=== PATIENT | male | born 1945 | race Caucasian/White ===

== ENCOUNTER 2023-06-14 10:13 | Inpatient (IN) | payer OTHER ==
[~2023-06-14] VITALS: Ht 175.3 cm; Wt 112.8 kg
[2023-06-14 10:29] LABS: Basophils # (auto) 0.1 10 ^3/uL (0-0.2); Basophils % (auto) 1.1 % (0.0-2.0); Eosinophils # (auto) 0.7 10 ^3/uL (0-0.8); Eosinophils % (auto) 6.7 % (0.0-7.0); Hematocrit 42.7 % (41.0-53.0); Hemoglobin 14.5 g/dL (13.5-17.5); Lymphocytes # (auto) 2.8 10 ^3/uL (0.4-5.4); Lymphocytes % (auto) 27.3 % (10.0-50.0); Mean Corpuscular Hemoglobin 33.8 pg (28.0-32.0); Mean Corpuscular Hgb Conc. 34.1 g/dL (32.0-36.0); Mean Corpuscular Volume 99.1 fL (80.0-100.0); Monocytes # (auto) 0.9 10 ^3/uL (0-1.3); Monocytes % (auto) 8.9 % (0.0-12.0); Neutrophils # (auto) 5.8 10 ^3/uL (1.6-8.6); Nucleated Red Blood Cells % 0.1 %; Red Cell Distribution Width 13.5 % (11.8-14.3); White Blood Cell 10.4 10^3/uL (4.4-10.8)
[2023-06-14 11:09] LABS: Alanine Aminotransferase 23 U/L (7-40); Albumin 4.2 g/dL (3.2-4.8); Alkaline Phosphatase 87 U/L (46-116); Anion Gap 8.9 (5-15); Aspartate Aminotransferase 20 U/L (13-40); BUN/Creatinine Ratio 12.5 (10.0-20.0); Blood Urea Nitrogen 19 mg/dL (9-23); Calcium 9.5 mg/dL (8.5-10.1); Carbon Dioxide 21.1 mmol/L (20-30); Chloride 102 mmol/L (98-107); Glucose 100 mg/dL (74-106); Potassium 4.2 mmol/L (3.5-5.1); Sodium 132 mmol/L (136-145)
[2023-06-14 11:10] LABS: Bilirubin, Total 0.5 mg/dL (0.2-1.0); Total Protein 7.1 g/dL (5.7-8.2)
[2023-06-14] MEDS ORDERED: NITROGLYCERIN 2% OINT 1GM PKG TD STA (11:53)
[2023-06-14] MEDS ORDERED: ONDANSETRON HCL 4 MG/2 ML VIAL IV ONE (12:00)
[2023-06-14] MEDS ORDERED: LORazepam 2MG/ML-1ML VIAL IV ONE (12:00)
[2023-06-14] MEDS ORDERED: PANTOPRAZOLE 40 MG/10 ML VIAL INJ IV ONE (12:00)
[2023-06-14] MEDS ORDERED: ACETAMINOPHEN 325 MG TAB PO ONE (12:00)
[2023-06-14] MEDS ORDERED: SODIUM CHLORIDE 0.9% 1,000 ML IV ONE (12:00)
[2023-06-14] MEDS ORDERED: ASPirin 81 mg TAB PO ONE (12:00)
[2023-06-14 12:56] LABS: INR 1.01 (0.9-1.15); Prothrombin Time 10.6 sec (9.3-11.8)
[2023-06-14 18:14] LABS: Urine Bacteria NONE SEEN /hpf (None Seen); Urine Blood Negative /uL (Negative); Urine Clarity Clear (Clear); Urine Color Yellow (Yellow); Urine Hyaline Cast FEW /lpf (0 - 2); Urine Mucus FEW (None Seen); Urine Protein, UAD TRACE (Negative); Urine Specific Gravity 1.022 (1.001-1.035); Urine WBC 1 /hpf (0 - 3); Urine pH 5.5 (5.0-8.0)
[2023-06-14] MEDS ORDERED: hydrALAZINE HCL 10 MG TAB PO PRN (21:00)
[2023-06-14] MEDS ORDERED: NITROGLYCERIN 0.4 MG SL TAB SL PRN (21:00)
[2023-06-14] MEDS ORDERED: MORPHINE SULFATE INJ 2 MG/ml SYRG IV PRN (21:00)
[2023-06-14] MEDS ORDERED: ONDANSETRON HCL 4 MG/2 ML VIAL IV PRN (21:00)
[2023-06-14] MEDS ORDERED: HYDROcodone-ACET 5/325MG TAB PO PRN (21:00)
[2023-06-14] MEDS ORDERED: ATORVASTATIN 20 MG TAB PO SCH (22:00)
[2023-06-15] VITALS (9 sets, daily range): BP systolic 126–140; BP diastolic 61–76; PULSE 63–81; RESP 16–20; TEMP 97.3–98.6; O2SAT 94–97
[2023-06-15 08:18] LABS: Anion Gap 8.1 (5-15); Carbon Dioxide 21.9 mmol/L (20-30); Chloride 102 mmol/L (98-107); Potassium 3.8 mmol/L (3.5-5.1); Sodium 132 mmol/L (136-145)
[2023-06-15 08:19] LABS: Calcium 9.1 mg/dL (8.5-10.1)
[2023-06-15 08:24] LABS: BUN/Creatinine Ratio 11.8 (10.0-20.0); Blood Urea Nitrogen 18 mg/dL (9-23); Glucose 95 mg/dL (74-106); Triglycerides 99 mg/dL (< 150)
[2023-06-15 08:25] LABS: LDL Cholesterol 106 mg/dL (< 100)
[2023-06-15 08:26] LABS: Cholesterol 150 mg/dL (< 200); HDL Cholesterol 29 mg/dL (40-59)
[2023-06-15] MEDS: ASPirin 81 mg TAB PO SCH (10:01)
[2023-06-15] MEDS: PANTOPRAZOLE 40 MG/10 ML VIAL INJ IV SCH (10:01)
[2023-06-15] MEDS: ATORVASTATIN 20 MG TAB PO SCH (21:11)
[2023-06-15] MEDS: SODIUM CHLORIDE 0.9% 1,000 ML IV SCH (22:00)
[2023-06-16] VITALS (7 sets, daily range): BP systolic 119–134; BP diastolic 63–79; PULSE 58–79; RESP 18–20; TEMP 97.7–98.1; O2SAT 94–98
[2023-06-16 05:52] LABS: Anion Gap 6.5 (5-15); Calcium 9.5 mg/dL (8.7-10.4); Carbon Dioxide 24.5 mmol/L (20-30); Chloride 98 mmol/L (98-107); Potassium 3.8 mmol/L (3.5-5.1); Sodium 129 mmol/L (136-145)
[2023-06-16 05:57] LABS: Glucose 94 mg/dL (74-106)
[2023-06-16 05:58] LABS: BUN/Creatinine Ratio 10.9 (10.0-20.0); Blood Urea Nitrogen 17 mg/dL (9-23)
[2023-06-16] MEDS: SODIUM CHLORIDE 0.9% 1,000 ML IV SCH ×3 (08:00→20:05)
[2023-06-16] MEDS ORDERED: IOHEXOL 350 MG/ML 100ML IJ ONE (08:03)
[2023-06-16] MEDS: ENOXAPARIN SOD 40 MG/0.4 ML SYRINGE SC SCH (09:12)
[2023-06-16] MEDS: ASPirin 81 mg TAB PO SCH (09:12)
[2023-06-16] MEDS: PANTOPRAZOLE 40 MG/10 ML VIAL INJ IV SCH (09:13)
[2023-06-16] MEDS: ATORVASTATIN 20 MG TAB PO SCH (21:09)
[2023-06-16] MEDS ORDERED: ALPRAZolam 0.5 MG TAB PO PRN ×2 (21:30)
[2023-06-16] MEDS: ACETYLCYSTEINE ORAL for CIN 20%(200MG/ML) 4ML PO SCH (22:00)
[2023-06-17] VITALS (7 sets, daily range): BP systolic 125–159; BP diastolic 64–86; PULSE 58–80; RESP 16–22; TEMP 97.6–98.5; O2SAT 94–96
[2023-06-17] MEDS: SODIUM CHLORIDE 0.9% 1,000 ML IV SCH ×3 (04:25→20:47)
[2023-06-17 06:37] LABS: Calcium 9.3 mg/dL (8.7-10.4); Chloride 97 mmol/L (98-107); Potassium 3.8 mmol/L (3.5-5.1); Sodium 127 mmol/L (136-145)
[2023-06-17 06:38] LABS: Anion Gap 6.8 (5-15); Carbon Dioxide 23.2 mmol/L (20-30)
[2023-06-17 06:43] LABS: BUN/Creatinine Ratio 10.4 (10.0-20.0); Blood Urea Nitrogen 18 mg/dL (9-23); Glucose 101 mg/dL (74-106)
[2023-06-17] MEDS: ADENOSINE 97 MG in GIVE UN-DILUTED 0 ML IV STA ×2 (07:45→09:45)
[2023-06-17] MEDS: ENOXAPARIN SOD 40 MG/0.4 ML SYRINGE SC SCH (10:15)
[2023-06-17] MEDS: PANTOPRAZOLE 40 MG/10 ML VIAL INJ IV SCH (10:15)
[2023-06-17] MEDS: ASPirin 81 mg TAB PO SCH (10:15)
[2023-06-17] MEDS: ACETYLCYSTEINE ORAL for CIN 20%(200MG/ML) 4ML PO SCH ×2 (10:20→22:31)
[2023-06-17] MEDS ORDERED: ALPR1TAB2 PO (12:48)
[2023-06-17] MEDS ORDERED: ESOM40GR PO (12:48)
[2023-06-17] MEDS ORDERED: HYDR25TA4 PO (12:48)
[2023-06-17] MEDS ORDERED: LOSA100T58 PO (12:48)
[2023-06-17] MEDS ORDERED: CITA-73 PO (12:48)
[2023-06-17] MEDS ORDERED: AMLO1TAB23 PO (15:40)
[2023-06-17] MEDS ORDERED: amLODIPine BESYLATE 5 MG TAB PO ONE (15:45)
[2023-06-17 16:56] LABS: Chloride 96 mmol/L (98-107); Sodium 126 mmol/L (136-145)
[2023-06-17 16:57] LABS: Anion Gap 6.1 (5-15); Calcium 9.6 mg/dL (8.5-10.1); Carbon Dioxide 23.9 mmol/L (20-30)
[2023-06-17 17:02] LABS: BUN/Creatinine Ratio 12.3 (10.0-20.0); Blood Urea Nitrogen 20 mg/dL (9-23); Glucose 99 mg/dL (74-106)
[2023-06-17] MEDS: ATORVASTATIN 20 MG TAB PO SCH (22:31)
[2023-06-18] MEDS: SODIUM CHLORIDE 0.9% 1,000 ML IV SCH (04:42)
[2023-06-18 05:00] VITALS: BP 136/71; PULSE 66; RESP 18; TEMP 97.8; O2SAT 96
[2023-06-18 08:00] VITALS: BP 144/67; PULSE 63; PULSE 76; RESP 20; TEMP 97.6; O2SAT 98
[2023-06-18 09:00] VITALS: BP 144/67; PULSE 76; RESP 20; TEMP 97.6; O2SAT 98
[2023-06-18] MEDS ORDERED: HCTZ 25 MG TAB PO SCH (10:00)
[2023-06-18] MEDS ORDERED: LOSARTAN POTASSIUM 50 MG TAB PO SCH (10:00)
[2023-06-18] MEDS ORDERED: ALPRAZOLAM 1 MG PO PRN (10:00)
[2023-06-18] MEDS: ASPirin 81 mg TAB PO SCH (10:30)
[2023-06-18] MEDS: CITALOPRAM HYDROBR 20 MG TAB PO SCH (10:30)
[2023-06-18] MEDS: PANTOPRAZOLE 40 MG TAB PO SCH (10:31)
[2023-06-18] MEDS: ENOXAPARIN SOD 40 MG/0.4 ML SYRINGE SC SCH (10:32)
[2023-06-18] MEDS: ACETYLCYSTEINE ORAL for CIN 20%(200MG/ML) 4ML PO SCH (10:32)
[2023-06-18] MEDS: amLODIPine BESYLATE 5 MG TAB PO SCH (10:36)
[2023-06-18] MEDS ORDERED: ISOSORBIDE MONONITRATE ER 60 MG TAB PO ONE (12:00)
[2023-06-18] MEDS ORDERED: SOD CHL 0.45% 1,000 ML IV SCH (14:00)
[2023-06-18] MEDS: ACETAMINOPHEN 325 MG TAB PO PRN ×2 (14:59→22:27)
[2023-06-18] MEDS ORDERED: SODIUM CHLORIDE 0.9% 1,000 ML IV SCH (18:00)
[2023-06-18 20:00] VITALS: PULSE 84; RESP 17
[2023-06-18] MEDS: ATORVASTATIN 20 MG TAB PO SCH (21:06)
[2023-06-18] MEDS: FEXOFENADINE HCL 60 MG TAB PO SCH (21:06)
[2023-06-18] MEDS: FLUTICASONE PROP NASAL SPR 0.05 % (50MCG) 16GM EACHNOSTRI SCH (21:06)
[2023-06-18 22:00] VITALS: BP 94/50; PULSE 77; RESP 16; TEMP 98.2; O2SAT 96
[2023-06-19] VITALS (11 sets, daily range): BP systolic 99–123; BP diastolic 38–60; PULSE 60–85; RESP 14–20; TEMP 97.6–99; O2SAT 93–95
[2023-06-19 02:22] LABS: Anion Gap 7.8 (5-15); Carbon Dioxide 21.2 mmol/L (20-30); Chloride 95 mmol/L (98-107); Potassium 3.8 mmol/L (3.5-5.1); Sodium 124 mmol/L (136-145)
[2023-06-19 02:23] LABS: Calcium 9.1 mg/dL (8.5-10.1)
[2023-06-19 02:28] LABS: BUN/Creatinine Ratio 10.3 (10.0-20.0); Blood Urea Nitrogen 18 mg/dL (9-23); Glucose 94 mg/dL (74-106)
[2023-06-19 02:35] LABS: Eosinophils # (auto) 0.3 10 ^3/uL (0-0.8)
[2023-06-19 02:37] LABS: Basophils # (auto) 0 10 ^3/uL (0-0.2); Basophils % (auto) 0.3 % (0.0-2.0); Eosinophils % (auto) 2.2 % (0.0-7.0); Hematocrit 33.8 % (41.0-53.0); Lymphocytes # (auto) 3.6 10 ^3/uL (0.4-5.4); Lymphocytes % (auto) 24.3 % (10.0-50.0); Mean Corpuscular Hemoglobin 34.5 pg (28.0-32.0); Mean Corpuscular Hgb Conc. 35.4 g/dL (32.0-36.0); Mean Corpuscular Volume 97.4 fL (80.0-100.0); Monocytes # (auto) 1.4 10 ^3/uL (0-1.3); Monocytes % (auto) 9.4 % (0.0-12.0); Neutrophils # (auto) 9.6 10 ^3/uL (1.6-8.6); Neutrophils % (auto) 63.8 % (37.0-80.0); Nucleated Red Blood Cells % 0.1 %; Red Blood Cells 3.48 10^6/uL (4.5-5.90); Red Cell Distribution Width 13.1 % (11.8-14.3)
[2023-06-19 02:55] LABS: INR 1.08 (0.9-1.15); Partial Thromboplastin Time 27.6 SEC (24.5-34.5); Prothrombin Time 11.3 sec (9.3-11.8)
[2023-06-19] MEDS: FLUTICASONE PROP NASAL SPR 0.05 % (50MCG) 16GM EACHNOSTRI SCH ×2 (09:09→22:10)
[2023-06-19] MEDS: ASPirin 81 mg TAB PO SCH (09:10)
[2023-06-19] MEDS: ENOXAPARIN SOD 40 MG/0.4 ML SYRINGE SC SCH (09:14)
[2023-06-19] MEDS: CITALOPRAM HYDROBR 20 MG TAB PO SCH (09:14)
[2023-06-19] MEDS: PANTOPRAZOLE 40 MG TAB PO SCH (09:14)
[2023-06-19] MEDS: ISOSORBIDE MONONITRATE ER 60 MG TAB PO SCH (09:16)
[2023-06-19] MEDS: FEXOFENADINE HCL 60 MG TAB PO SCH ×2 (10:09→22:10)
[2023-06-19] MEDS: amLODIPine BESYLATE 5 MG TAB PO SCH (12:30)
[2023-06-19] MEDS ORDERED: ANGIOMAX 250 MG VIAL IV ONE (15:43)
[2023-06-19] MEDS ORDERED: VERAPAMIL 2.5MG/ML INJ 2ML VIAL IV ONE (15:44)
[2023-06-19] MEDS ORDERED: fentaNYL CITRATE 100 MCG/2 ML VL ONE (15:44)
[2023-06-19] MEDS ORDERED: LIDOCAINE 2%HCL (LOCAL ANESTH.) INJ 20ML MDV ONE (15:45)
[2023-06-19] MEDS ORDERED: MIDAZOLAM HCL 2MG/2ML 2ml VIAL (1mg/ml) ONE (15:45)
[2023-06-19] MEDS ORDERED: SODIUM CHL 0.9% 0 ML ONE (15:45)
[2023-06-19] MEDS ORDERED: IOHEXOL 350 MG/ML 100ML IJ ONE ×2 (16:09→16:34)
[2023-06-19] MEDS ORDERED: FUROSEMIDE 40 MG/4 ML VIAL IV ONE (16:15)
[2023-06-19] MEDS ORDERED: SODIUM CHLORIDE 0.9% 1,000 ML IV SCH (19:00)
[2023-06-19] MEDS: ATORVASTATIN 20 MG TAB PO SCH (22:10)
[2023-06-20 05:00] VITALS: BP 101/68; PULSE 68; RESP 19; TEMP 97.9; O2SAT 96
[2023-06-20 06:25] LABS: Chloride 97 mmol/L (98-107); Potassium 3.8 mmol/L (3.5-5.1); Sodium 126 mmol/L (136-145)
[2023-06-20 06:26] LABS: Anion Gap 7 (5-15); Calcium 9.3 mg/dL (8.7-10.4); Carbon Dioxide 22 mmol/L (20-30)
[2023-06-20 06:31] LABS: BUN/Creatinine Ratio 11.8 (10.0-20.0); Blood Urea Nitrogen 18 mg/dL (9-23); Glucose 85 mg/dL (74-106)
[2023-06-20 07:30] VITALS: PULSE 68
[2023-06-20 08:00] VITALS: RESP 18; O2SAT 96
[2023-06-20 09:00] VITALS: BP 132/73; PULSE 72; RESP 20; TEMP 97.8; O2SAT 95
[2023-06-20] MEDS: FLUTICASONE PROP NASAL SPR 0.05 % (50MCG) 16GM EACHNOSTRI SCH (10:00)
[2023-06-20] MEDS: ENOXAPARIN SOD 40 MG/0.4 ML SYRINGE SC SCH (10:00)
[2023-06-20] MEDS: FEXOFENADINE HCL 60 MG TAB PO SCH (10:15)
[2023-06-20] MEDS: ISOSORBIDE MONONITRATE ER 60 MG TAB PO SCH (10:16)
[2023-06-20] MEDS: ASPirin 81 mg TAB PO SCH (10:17)
[2023-06-20] MEDS: amLODIPine BESYLATE 5 MG TAB PO SCH (10:17)
[2023-06-20] MEDS: CITALOPRAM HYDROBR 20 MG TAB PO SCH (10:18)
[2023-06-20] MEDS ORDERED: ASPI81TA28 PO (10:18)
[2023-06-20] MEDS: PANTOPRAZOLE 40 MG TAB PO SCH (10:18)
[2023-06-20] MEDS ORDERED: ATOR20TA50 PO (10:18)
[2023-06-20 13:00] VITALS: BP 111/55; PULSE 68; RESP 18; TEMP 98; O2SAT 95
[2023-06-20 13:12] VITALS: BP 101/68; TEMP 36.6
== END 2023-06-20 13:45 | disposition home or self-care (01) | DRG 287 ==
LOC: ER 10:13 → TELE 20:56 → TELE-CENTR 22:56 → TELE 06-15 00:09 → TELE-CENTR 06-15 01:16 → OBSVTOIN 06-16 11:44
PROVIDERS: ADMIT Hospitalist; ATTEND Hospitalist
PROC: 4A023N7 Measurement of Cardiac Sampling and Pressure, Left Heart, Percutaneous Approach (ICD-10-PCS; principal; 2023-06-19)
PROC: B2111ZZ Fluoroscopy of Multiple Coronary Arteries using Low Osmolar Contrast (ICD-10-PCS; 2023-06-19)
PROC: B2151ZZ Fluoroscopy of Left Heart using Low Osmolar Contrast (ICD-10-PCS; 2023-06-19)
DX: I25.10 Atherosclerotic heart disease of native coronary artery without angina pectoris (principal); N17.9 Acute kidney failure, unspecified; E87.1 Hypo-osmolality and hyponatremia; I13.10 Hypertensive heart and chronic kidney disease without heart failure, with stage 1 through stage 4 chronic kidney disease, or unspecified chronic kidney disease; Z53.20 Procedure and treatment not carried out because of patient's decision for unspecified reasons; I45.10 Unspecified right bundle-branch block; E66.9 Obesity, unspecified; E03.8 Other specified hypothyroidism; N18.31 Chronic kidney disease, stage 3a; Z68.36 Body mass index [BMI] 36.0-36.9, adult; I25.2 Old myocardial infarction; Z79.82 Long term (current) use of aspirin; Z79.899 Other long term (current) drug therapy; Z82.49 Family history of ischemic heart disease and other diseases of the circulatory system
CPT/HCPCS: 36415; 71045; 71275; 78452; 80048; 80053; 80061; 81001; 83735; 83880; 83930; 84439; 84443; 84484; 84550; 85025; 85379; 85610; 85730; 93005; 93017; 93306; 93458; 96361; 96374; 96375; 99152; 99153; C9113; G0378; J0153; J2250; J2405

== ENCOUNTER 2024-09-01 02:43 | Emergency (ER) | payer OTHER ==
[~2024-09-01] VITALS: Ht 175.3 cm; Wt 100.0 kg
[~2024-09-01 02:43] MED LIST: ALPR1TAB2 PO; AMLO1TAB23 PO; ASPI81TA28 PO; ATOR20TA50 PO; CITA-73 PO; ESOM40GR PO
[2024-09-01 03:15] VITALS: TEMP 98.8
[2024-09-01 03:44] VITALS: PULSE 84; RESP 16; O2SAT 95
--- NOTE | 2024-09-01 04:11 | ED.PDOC ---
History of Present Illness HPI Comments 79 y/o M, Hx of ORALIA, CKF, HTN, ND, and obesity, is BIBA for c/o generalized weakness s/p mechanical fall, today. Patient endorses on having a mechanical fall, this morning, after losing his balance and falling backwards and landing onto his back on concrete brittanie, without head injury or lost of consciousn ess, and being unable to assist himself back up onto his feet then, this morning. Patient refutes any recent prior injuries and ailments, with exception of a productive cough with white phlegm production that he has been having for the past 3x days that he still endorses on having. Patient denies having any vision or speech changes, numbness, tingling, additional injuries, or other associated symptoms or modifiers at this time. Chief Complaint: Dizziness Time Seen by MD: 03:50 Reviewed Notes: Nurses Notes, Telephone Switchboard Operator Notes, Medications, Allergies Allergies: Coded Allergies: No Known Drug Allergy (Verified Allergy, Unknown, 06/14/23) Home Meds Active Scripts Aspirin (Aspirin Ec) 81 Mg Tab, 81 MG PO DAILY, #30 TAB Prov:KARLI ANTHONY MD 06/20/23 Atorvastatin Calcium (ATORVASTATIN CALCIUM) 20 Mg Tab, 1 TAB PO DAILY, #90 TAB 1 Refill Prov:KARLI ANTHONY MD 06/20/23 Amlodipine Besylate (Amlodipine Besylate) 10 Mg Tab, 1 TAB PO DAILY, #90 TAB 1 Refill Prov:KARLI ANTHONY MD 06/17/23 Reported Medications Esomeprazole Magnesium (Esomeprazole Magnesium) 40 Mg Gra, 40 MG PO DAILY, GM 06/17/23 Alprazolam (Xanax) 1 Mg Tab, 1 TAB PO DAILY, #60 TAB 06/17/23 Citalopram Hydrobromide (Citalopram Hydrobromide) 40 Mg Tab, 1 TAB PO DAILY, #90 TAB 1 Refill 06/17/23 Information Source: Patient, Emergency Med Personnel Mode of Arrival: EMS Past Medical History PAST MEDICAL HISTORY: Anxiety, CKF, HTN, ND Past Medical History (Other): ORALIA, obesity Surgical History (Other): left-knee Sx Family History Family History: Unknown Social History Smoker: Non-Smoker Alcohol: Denies ETOH Use Drugs: Denies Drug Use Lives In: Home All Other Systems: Reviewed and Negative (see HPI) Physical Exam General Appearance: No Apparent Distress, Obese HEENT: Normal ENT Inspection, Pharynx Normal, TMs Normal Neck: Full Range of Motion, Non-Tender, Normal, Normal Inspection Respiratory: Chest Non-Tender, Lungs Clear, No Accessory Muscle Use, No Respiratory Distress, Normal Breath Sounds Cardiovascular: No Edema, No JVD, No Murmur, No Gallop, Normal Peripheral Pulses, Regular Rate/Rhythm Breast Exam: Deferred Gastrointestinal: No Organomegaly, Non Tender, No Pulsatile Mass, Normal Bowel Sounds, Soft Genitalia: Deferred Pelvic: Deferred Rectal: Deferred Extremities: No calf tenderness, Normal capillary refill, Normal inspection, Normal range of motion, Non-tender, No pedal edema Musculoskeletal : Apperance: Normal 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 Was a procedure done?: No EKG EKG : Pulse Rate (adult): 90 [place]: Normal Cardiac Rhythm: NSR Block: RBBB Hypertrophy: LVH ST: Normal Comments left anterior fascicular block Differential Dx Considerations may include: viral syndrome, UTI, URI, Covid19, electrolyte imbalance, fracture, dislocation, sprain, musculoskeletal pain X-Ray, Labs, Meds, VS Vital Signs Date Time Temp Pulse Resp B/P (MAP) Pulse Ox O2 Delivery O2 Flow Rate FiO2 09/01/24 05:00 129 18 124/77 (93) 96 09/01/24 04:34 20 95 Room Air* 0 21 09/01/24 04:11 90 09/01/24 03:44 84 16 95 Nasal Cannula* 4 36 09/01/24 03:15 98.8 92 11 138/76 (96) 95 98.8 09/01/24 02:55 90 09/01/24 02:52 97.8 89 16 147/116 (126) 97 Lab Test 09/01/24 04:50 09/01/24 04:39 Range/Units White Blood Count 11.8 H 4.4-10.8 10^3/uL Red Blood Count 4.34 L 4.5-5.90 10^6/uL Hemoglobin 15.3 13.5-17.5 g/dL Hematocrit 45.1 41.0-53.0 % Mean Corpuscular Volume 104.1 H 80.0-100.0 fL Mean Corpuscular Hemoglobin 35.3 H 28.0-32.0 pg Mean Corpuscular Hemoglobin Concent 33.9 32.0-36.0 g/dL Red Cell Distribution Width 13.2 11.8-14.3 % Platelet Count 186 140-450 10^3/uL Mean Platelet Volume 8.9 6.9-10.8 fL Neutrophils (%) (Auto) 73.7 37.0-80.0 % Lymphocytes (%) (Auto) 13.7 10.0-50.0 % Monocytes (%) (Auto) 12.1 H 0.0-12.0 % Eosinophils (%) (Auto) 0.1 0.0-7.0 % Basophils (%) (Auto) 0.4 0.0-2.0 % Neutrophils # (Auto) 8.7 H 1.6-8.6 10 ^3/uL Lymphocytes # (Auto) 1.6 0.4-5.4 10 ^3/uL Monocytes # (Auto) 1.4 H 0-1.3 10 ^3/uL Eosinophils # (Auto) 0 0-0.8 10 ^3/uL Basophils # (Auto) 0.1 0-0.2 10 ^3/uL Nucleated Red Blood Cells 0.3 % Prothrombin Time 11.5 9.3-11.8 sec Prothrombin Time INR 1.09 0.9-1.15 Activated Partial Thromboplast Time 31.0 24.5-34.5 SEC Sodium Level 139 136-145 mmol/L Potassium Level 4.1 3.5-5.1 mmol/L Chloride Level 105 98-107 mmol/L Carbon Dioxide Level 22 20-31 mmol/L Anion Gap 12 5-15 Blood Urea Nitrogen 18 9-23 mg/dL Creatinine 1.56 H 0.700-1.30 mg/dL Glomerular Filtration Rate Calc 45 >90 mL/min BUN/Creatinine Ratio 11.5 10.0-20.0 Serum Glucose 101 74-106 mg/dL Calcium Level 10.4 8.7-10.4 mg/dL Total Bilirubin 0.8 0.2-1.0 mg/dL Aspartate Amino Transferase (AST) 36 13-40 U/L Alanine Aminotransferase (ALT) 38 7-40 U/L Alkaline Phosphatase 111 46-116 U/L Troponin I High Sensitivity 47 </=54 ng/L B-Type Natriuretic Peptide 218.06 0-100 pg/mL Total Protein 7.4 5.7-8.2 g/dL Albumin 4.6 3.2-4.8 g/dL Influenza Type A Antigen Negative Negative Influenza Type B Antigen Negative Negative SARS-CoV-2 Antigen (Rapid) Negative NEGATIVE Current Medications Medications (Trade) Dose Ordered Sig/Kemal Route Start Time Stop Time Status Last Admin Albuterol (Ventolin Medneb) 5 mg ONCE ONCE NEB 09/01/24 04:15 09/01/24 04:16 DC 09/01/24 04:24 Levofloxacin/ Dextrose 100 ml @ 100 mls/hr ONCE ONCE IV 09/01/24 04:15 09/01/24 05:14 DC 09/01/24 04:40 Methylprednisolone Sodium Succinate (Solu Medrol) 125 mg ONCE ONCE IV 09/01/24 04:15 09/01/24 04:16 DC 09/01/24 04:40 [place] [id number] Ph: [phone] DIAGNOSTIC IMAGING Diagnostic Imaging Report : [id number] Signed PATIENT: MINDY HAWTHORNE ACCT: [id number] UNIT: [id number] : 1945 LOC: ER ROOM / BED: / AGE / SEX: 79 / M ADM STATUS: REG ER SERVICE [id number] ORDERING PHYSICIAN: FREDY MCKEON MD PROCEDURE(s): CXRP - CHEST PORTABLE REASON: cough ORDER NUMBER(s): [id number], ACCESSION NUMBER(s): [id number] CHEST RADIOGRAPH Indication: cough Technique: Single frontal view of the chest was obtained COMPARISON: XY CHEST PORTABLE on DOS: 06/14/23 FINDINGS: Lines and Tubes: None Lungs: Low lung volumes Pleura: No effusion. No pneumothorax. Cardiomediastinal contours: Cardiomegaly Bones: Unremarkable IMPRESSION: Low lung volumes and cardiomegaly. ATED BY: LEONID JONES MD DICTATED DATE/TIME: 09/01/24457 SIGNED BY: LEONID JONES MD SIGNED DATE/TIME: 09/01/24457 CC: WBC is 11.8. Troponin is 47. BNP is 219. EKG shows no significant changes. COVID and influenza a and B are negative. The patient will be discharged with a Z-Jerald. Time of 1ST Reevaluation: 04:20 Reevaluation 1ST: Unchanged Patient Education/Counseling: Diagnosis, Treatment Family Education/Counseling: No Family Present Departure 1 Departure Time of Disposition: 06:01 Impression: Primary Impression: Fall Qualified Codes: W19.XXXA - Unspecified fall, initial encounter Additional Impressions: Generalized weakness Upper respiratory infection Qualified Codes: J06.9 - Acute upper respiratory infection, unspecified Disposition: 01 HOME / SELF CARE / HOMELESS Condition: Stable Additional Instructions: Reassessed patient, vital signs stable. Denies any new symptoms. Patient is able to tolerate PO and ambulate/be mobile at their baseline without concern. Risks and benefits of all medications given or prescribed, if any, discussed. All lab work, imaging and diagnostic studies were reviewed by me. The patient was counseled extensively on my clinical impression, diagnosis, expected course of the disease, and plan, including their follow-up care. Will discharge patient. Patient instructed to follow up with Primary Care Physician within 24-48 hours. Strict return precautions given for further exacerbation of symptoms or for new symptoms. The patient was given the opportunity to ask questions and all questions were answered by myself and the nursing/tech staff. Patient is in agreement with the care plan. The patient verbally expressed understanding of the discharge instructions, including the reasons to return to the Emergency Department. e-Prescriptions Azithromycin (Zithromax Z-Jerald) 250 Mg Tab 250 MG PO DAILY, #5 TAB Prov: FREDY MCKEON MD 09/01/24 Discharged With: Self Critical Care Note Critical Care Time?: No Stability Stability form required: No Heart Score Heart Score: Heart Score Response (Comments) Value History N/A 0 EKG N/A 0 Age N/A 0 Risk Factors N/A 0 Troponin N/A 0 Total 0 I personally scribed for FREDY MCKEON MD ([email or web address]) on 09/01/24 at 04:11. Electronically submitted by Kiran Dugan ([email or web address]). I personally scribed for FREDY MCKEON MD ([email or web address]) on 09/01/24 at 05:21. Electronically submitted by Kiran Dugan ([email or web address]). FREDY MCKEON MD Sep 01, 2024 04:11
[2024-09-01] MEDS: ALBUTEROL SULF 2.5 MG/0.5ML(0.5%) NEB SOLN NEB ONE (04:24)
[2024-09-01] MEDS: methylPREDNISolone SOD SUCC 125 MG/2 ML VL IV ONE (04:40)
[2024-09-01] MEDS: levoFLOXacin 500MG 100 ML IV ONE (04:40)
[2024-09-01 05:00] VITALS: BP 124/77; PULSE 129; RESP 18; O2SAT 96
--- NOTE | 2024-09-01 05:02 | DVH ---
CHEST RADIOGRAPH Indication: cough Technique: Single frontal view of the chest was obtained COMPARISON: XY CHEST PORTABLE on DOS: 06/14/23 FINDINGS: Lines and Tubes: None Lungs: Low lung volumes Pleura: No effusion. No pneumothorax. Cardiomediastinal contours: Cardiomegaly Bones: Unremarkable IMPRESSION: Low lung volumes and cardiomegaly.
[2024-09-01 05:14] LABS: COVID19 ANTIGEN SOFIA FIA NEGATIVE (NEGATIVE)
[2024-09-01 05:21] LABS: Basophils # (auto) 0.1 10 ^3/uL (0-0.2); Basophils % (auto) 0.4 % (0.0-2.0); Eosinophils # (auto) 0 10 ^3/uL (0-0.8); Eosinophils % (auto) 0.1 % (0.0-7.0); Hematocrit 45.1 % (41.0-53.0); Hemoglobin 15.3 g/dL (13.5-17.5); Lymphocytes # (auto) 1.6 10 ^3/uL (0.4-5.4); Lymphocytes % (auto) 13.7 % (10.0-50.0); Mean Corpuscular Hemoglobin 35.3 pg (28.0-32.0); Mean Corpuscular Hgb Conc. 33.9 g/dL (32.0-36.0); Mean Corpuscular Volume 104.1 fL (80.0-100.0); Monocytes # (auto) 1.4 10 ^3/uL (0-1.3); Monocytes % (auto) 12.1 % (0.0-12.0); Neutrophils # (auto) 8.7 10 ^3/uL (1.6-8.6); Neutrophils % (auto) 73.7 % (37.0-80.0); Nucleated Red Blood Cells % 0.3 %; Platelet Count (auto) 186 10^3/uL (140-450); Red Blood Cells 4.34 10^6/uL (4.5-5.90); Red Cell Distribution Width 13.2 % (11.8-14.3); White Blood Cell 11.8 10^3/uL (4.4-10.8)
[2024-09-01 05:21] LABS: Rapid Influenza A Negative (Negative); Rapid Influenza B Negative (Negative)
[2024-09-01 05:25] LABS: Alanine Aminotransferase 38 U/L (7-40); Alkaline Phosphatase 111 U/L (46-116); Anion Gap 12 (5-15); Aspartate Aminotransferase 36 U/L (13-40); BUN/Creatinine Ratio 11.5 (10.0-20.0); Blood Urea Nitrogen 18 mg/dL (9-23); Calcium 10.4 mg/dL (8.7-10.4); Carbon Dioxide 22 mmol/L (20-31); Chloride 105 mmol/L (98-107); Glucose 101 mg/dL (74-106); Potassium 4.1 mmol/L (3.5-5.1); Sodium 139 mmol/L (136-145)
[2024-09-01 05:26] LABS: Albumin 4.6 g/dL (3.2-4.8); Bilirubin, Total 0.8 mg/dL (0.2-1.0); Total Protein 7.4 g/dL (5.7-8.2)
[2024-09-01 05:27] LABS: INR 1.09 (0.9-1.15); Prothrombin Time 11.5 sec (9.3-11.8)
[2024-09-01] MEDS ORDERED: AZITTAB PO (06:02)
--- NOTE | 2024-09-01 06:21 | ECG ---
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
== END 2024-09-01 07:30 | disposition home or self-care (01) ==
LOC: ER 02:43 → EDBD 02:43 → ER 07:30
DX: R53.1 Weakness (principal); J06.9 Acute upper respiratory infection, unspecified; I10 Essential (primary) hypertension; Z79.899 Other long term (current) drug therapy; Z79.84 Long term (current) use of oral hypoglycemic drugs; Z20.822 Contact with and (suspected) exposure to COVID-19; Z98.890 Other specified postprocedural states; W18.39XA Other fall on same level, initial encounter; Y93.89 Activity, other specified; Y92.89 Other specified places as the place of occurrence of the external cause; Y99.8 Other external cause status
CPT/HCPCS: 36415; 71045; 80053; 83880; 84484; 85025; 85610; 85730; 87426; 87804; 93005; 94640; 96365; 96375; 99285; J1956; J2919

== ENCOUNTER 2025-06-10 22:07 | Emergency (ER) | payer OTHER ==
[~2025-06-10] VITALS: Ht 175.3 cm; Wt 113.0 kg
[~2025-06-10 22:07] MED LIST changes: +AZITTAB PO
[2025-06-10 22:10] VITALS: PULSE 91; RESP 33; O2SAT 96
--- NOTE | 2025-06-10 22:34 | ED.PDOC ---
History of Present Illness HPI Comments 80-year-old male who came to ER via EMS for generalized weakness. Patient states he has been unwell for the past 2 days, has been feeling generally weak with shortness a breath, fever and chills. He fell off his bed today, landing badly in his left side, with notable bruising on his left flank. Denies any h ead trauma or loss of consciousness. Upon arrival patient has a temperature has a 102.9 F Chief Complaint: General Weakness Time Seen by MD: 22:33 Reviewed Notes: Nurses Notes Allergies: Coded Allergies: No Known Drug Allergy (Verified Allergy, Unknown, 06/14/23) Home Meds Active Scripts Azithromycin (Zithromax Z-Jerald) 250 Mg Tab, 250 MG PO DAILY, #5 TAB Prov:FREDY MCKEON MD 09/01/24 Aspirin (Aspirin Ec) 81 Mg Tab, 81 MG PO DAILY, #30 TAB Prov:KARLI ANTHONY MD 06/20/23 Atorvastatin Calcium (ATORVASTATIN CALCIUM) 20 Mg Tab, 1 TAB PO DAILY, #90 TAB 1 Refill Prov:KARLI ANTHONY MD 06/20/23 Amlodipine Besylate (Amlodipine Besylate) 10 Mg Tab, 1 TAB PO DAILY, #90 TAB 1 Refill Prov:KARLI ANTHONY MD 06/17/23 Reported Medications Esomeprazole Magnesium (Esomeprazole Magnesium) 40 Mg Gra, 40 MG PO DAILY, GM 06/17/23 Alprazolam (Xanax) 1 Mg Tab, 1 TAB PO DAILY, #60 TAB 06/17/23 Citalopram Hydrobromide (Citalopram Hydrobromide) 40 Mg Tab, 1 TAB PO DAILY, #90 TAB 1 Refill 06/17/23 Information Source: Patient Mode of Arrival: EMS Severity: Moderate Timing: Hours Duration: Since onset Past Medical History PAST MEDICAL HISTORY: Anxiety, CKF, HTN, HI Surgical History: Denies all surgeries Family History Family History: Reviewed,noncontributory to illness Social History Smoker: Non-Smoker Alcohol: Denies ETOH Use Drugs: Denies Drug Use Lives In: Home Constitutional: reports: fever, weakness; denies: chills, diaphoresis, fatigue, malaise, sweats, others EENTM: denies: blurred vision, double vision, ear bleeding, ear discharge, ear drainage, ear pain, ear ringing, eye pain, eye redness, hearing loss, mouth pain, mouth swelling, nasal discharge, nose bleeding, nose congestion, nose pain, photophobia, tearing, throat pain, throat swelling, voice changes, others Respiratory: denies: cough, hemoptysis, orthopnea, SOB at rest, shortness of breath, SOB with excertion, stridor, wheezing, others Cardiovascular: denies: chest pain, dizzy spells, diaphoresis, Dyspnea on exertion, edema, irregular heart beat, left arm pain, lightheadedness, palpitations, PND, syncope, others Gastrointestinal: denies: abdomen distended, abdominal pain, blood streaked bowels, constipated, diarrhea, dysphagia, difficulty swallowing, hematemesis, melena, nausea, poor appetite, poor fluid intake, rectal bleeding, rectal pain, vomiting, others Genitourinary: reports: flank pain (Left); denies: burning, dysuria, frequency, hematuria, incontinence, penile discharge, penile sore, pain, testicle pain, testicle swelling, urgency, others Neurological: denies: dizziness, fainting, headache, left sided numbness, left sided weakness, numbness, paresthesia, pre-existing deficit, right sided numbness, right sided weakness, seizure, speech problems, tingling, tremors, weakness, others Musculoskeletal: denies: back pain, gout, joint pain, joint swelling, muscle pain, muscle stiffness, neck pain, others Integumetry: denies: bruises, change in color, change in hair/nails, dryness, laceration, lesions, lumps, rash, wounds, others Allergic/Immunocompromised: denies: Difficulty Healing, Frequent Infections, Hives, Itching, others Hematologic/Lymphatic: denies: anemia, blood clots, easy bleeding, easy bruising, swollen glands, others Endocrine: denies: excessive hunger, excessive sweating, excessive thirst, excessive urination, flushing, intolerance to cold, intolerance to heat, unexplained weight gain, unexplained weight loss, others Psychiatric: denies: anxiety, bipolar disorder, depression, hopeless, panic disorder, schizophrenia, sleepless, suicidal, others Physical Exam General Appearance: No Apparent Distress, Normal HEENT: Normal ENT Inspection, Pharynx Normal, TMs Normal Neck: Full Range of Motion, Non-Tender, Normal, Normal Inspection Respiratory: Chest Non-Tender, Lungs Clear, No Accessory Muscle Use, No Respira tory Distress, Normal Breath Sounds Cardiovascular: No Edema, No JVD, No Murmur, No Gallop, Normal Peripheral Pulses, Regular Rate/Rhythm Breast Exam: Deferred Gastrointestinal: No Organomegaly, Non Tender, No Pulsatile Mass, Normal Bowel Sounds, Soft Genitalia: Deferred Pelvic: Deferred Rectal: Deferred Extremities: No calf tenderness, Normal capillary refill, Normal inspection, Normal range of motion, Non-tender, No pedal edema Musculoskeletal : Apperance: Normal 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 Was a procedure done?: No EKG EKG : Pulse Rate (adult): 107 Cardiac Rhythm: ST Differential Dx Considerations may include: Anemia, electrolyte imbalance, viral syndrome, COVID-19, weakness, fall injury X-Ray, Labs, Meds, VS Vital Signs Date Time Temp Pulse Resp B/P (MAP) Pulse Ox O2 Delivery O2 Flow Rate FiO2 06/10/25 23:43 100.7 06/10/25 22:34 107 06/10/25 22:13 107 06/10/25 22:07 102.9 112 23 131/67 95 102.9 Lab Test 06/11/25 00:37 06/10/25 23:35 06/10/25 22:40 Range/Units Lactic Acid Level Pending 3.0 *H 0.4-2.0 mmol/L Influenza Type A Antigen Negative Negative Influenza Type B Antigen Negative Negative SARS-CoV-2 Antigen (Rapid) Positive *A NEGATIVE White Blood Count 13.4 H 4.4-10.8 10^3/uL Red Blood Count 4.45 L 4.5-5.90 10^6/uL Hemoglobin 15.3 13.5-17.5 g/dL Hematocrit 44.6 41.0-53.0 % Mean Corpuscular Volume 100.1 H 80.0-100.0 fL Mean Corpuscular Hemoglobin 34.4 H 28.0-32.0 pg Mean Corpuscular Hemoglobin Concent 34.4 32.0-36.0 g/dL Red Cell Distribution Width 12.9 11.8-14.3 % Platelet Count 218 140-450 10^3/uL Mean Platelet Volume 8.9 6.9-10.8 fL Neutrophils (%) (Auto) 84.2 H 37.0-80.0 % Lymphocytes (%) (Auto) 6.9 L 10.0-50.0 % Monocytes (%) (Auto) 8.5 0.0-12.0 % Eosinophils (%) (Auto) 0.0 0.0-7.0 % Basophils (%) (Auto) 0.4 0.0-2.0 % Neutrophils # (Auto) 11.3 H 1.6-8.6 10 ^3/uL Lymphocytes # (Auto) 0.9 0.4-5.4 10 ^3/uL Monocytes # (Auto) 1.1 0-1.3 10 ^3/uL Eosinophils # (Auto) 0 0-0.8 10 ^3/uL Basophils # (Auto) 0 0-0.2 10 ^3/uL Nucleated Red Blood Cells 0.0 % Sodium Level 136 136-145 mmol/L Potassium Level 4.2 3.5-5.1 mmol/L Chloride Level 103 98-107 mmol/L Carbon Dioxide Level 20 20-31 mmol/L Anion Gap 13 5-15 Blood Urea Nitrogen 19 9-23 mg/dL Creatinine 1.78 H 0.700-1.30 mg/dL Glomerular Filtration Rate Calc 38 >90 mL/min BUN/Creatinine Ratio 10.7 10.0-20.0 Serum Glucose 115 H 74-106 mg/dL Calcium Level 10.1 8.7-10.4 mg/dL Total Bilirubin 0.6 0.2-1.0 mg/dL Aspartate Amino Transferase (AST) 45 H 13-40 U/L Alanine Aminotransferase (ALT) 31 7-40 U/L Alkaline Phosphatase 90 46-116 U/L Total Protein 8.2 5.7-8.2 g/dL Albumin 5.0 H 3.2-4.8 g/dL Current Medications Medications (Trade) Dose Ordered Sig/Kemal Route Start Time Stop Time Status Last Admin Sodium Chloride 1,000 ml @ 1,000 mls/hr Q1H ONCE IVB 06/10/25 22:30 06/10/25 23:29 DC 06/10/25 23:30 Acetaminophen (Tylenol Tablet) 1,000 mg ONCE ONCE PO 06/10/25 22:30 06/10/25 22:31 DC 06/10/25 23:43 Time of 1ST Reevaluation: 22:29 Reevaluation 1ST: Unchanged Patient Education/Counseling: Diagnosis, Treatment Family Education/Counseling: No Family Present SEPSIS Sepsis Screen Date sepsis recognized/suspect: Jun 10, 2025 Time Sepsis recognized/suspect: 2206 Recent Procedure: No On Antibiotic Therapy: No Respiratory Rate >20: No Heart Rate >90: No Temp<36 C (96.8 F) or >38.3 C: No SBP <90 or MAP <65 mmHG: No New Acute Mental Status Change: No Is the patient on CPAP, BIPAP,: No Physician Orders Electrocardigram (06/10/25 22:16) Urinalysis (06/10/25 22:26) Blood Culture (06/10/25 22:26) Chest Xray 1 View (06/10/25 22:26) Piperacillin-Tazob 3.375gm (Zosyn 3.375g (06/11/25 01:00) Vital Signs Date Time Temp Pulse Resp B/P (MAP) Pulse Ox O2 Delivery O2 Flow Rate FiO2 06/10/25 23:43 100.7 06/10/25 22:34 107 06/10/25 22:13 107 06/10/25 22:07 102.9 112 23 131/67 95 102.9 Laboratory Tests Test 06/10/25 22:40 06/11/25 00:37 Lactic Acid Level 3.0 mmol/L (0.4-2.0) *H Pending White Blood Count 13.4 10^3/uL (4.4-10.8) H Medications Medications Dose Ordered Sig/Kemal Route Start Time Stop Time Status Last Admin Dose Admin Acetaminophen 1,000 mg ONCE ONCE PO 06/10/25 22:30 06/10/25 22:31 DC 06/10/25 23:43 Sodium Chloride 1,000 ml @ 1,000 mls/hr Q1H ONCE IVB 06/10/25 22:30 06/10/25 23:29 DC 06/10/25 23:30 Departure 1 Departure Time of Disposition: 01:02 Impression: Primary Impression: ORALIA (acute kidney injury) Additional Impression: COVID-19 Disposition: 09 ADMITTED INPATIENT Admit to: Med Surg Condition: Guarded Comments 80-year-old male noted to have a fever and generalized weakness today. On his lab results he is positive for COVID. White blood cell count elevated at 13.4. Lactic acid is elevated 3.0. Acute renal injury with creatinine high at 1.78. Patient was given IV fluids and IV Zosyn antibiotics and Tylenol for fever. Patient will need to be admitted for COVID-19 and acute renal injury and possible sepsis Critical Care Note Critical Care Time?: Yes (35 min-critical care time only) Critical care comment: Total critical care time: Approximately 36 minutes Due to a high probability of clinically significant, life threatening deterioration, the patient required my highest level of preparedness to intervene emergently and I personally spent this critical care time directly and personally managing the patient. This critical care time included obtaining a history; examining the patient; pulse oximetry; ordering and review of studies; arranging urgent treatment with development of a management plan; evaluation of patient's response to treatment; frequent reassessment; and, discussions with other providers. This critical care time was performed to assess and manage the high probability of imminent, life-threatening deterioration that could result in multi-organ failure. It was exclusive of separately billable procedures and treating other patients. Stability Stability form required: No Heart Score Heart Score: Heart Score Response (Comments) Value History N/A 0 EKG N/A 0 Age N/A 0 Risk Factors N/A 0 Troponin N/A 0 Total 0 I personally scribed for SHARON KC MD ([email or web address]) on 06/10/25 at 22:34. Electronically submitted by Rob Calvert ([email or web address]). SHARON KC MD Jun 10, 2025 22:34
[2025-06-10 22:55] LABS: Hematocrit 44.6 % (41.0-53.0); Hemoglobin 15.3 g/dL (13.5-17.5); Nucleated Red Blood Cells % 0.0 %
--- NOTE | 2025-06-10 22:55 | DVH ---
CHEST RADIOGRAPH Indication: fever SOB Technique: Single frontal view of the chest was obtained Comparison: XR CHEST 2 VIEW on DOS: 11/18/24, XY CHEST PORTABLE on DOS: 09/01/24, CT CT ANGIO CHEST CO NTRAST on DOS: 06/16/23 FINDINGS: Lines and Tubes: None Lungs: Improved inspiratory effort when compared to 09/01/2024. Pleura: No effusion. No pneumothorax. Cardiomediastinal contours: Unremarkable Bones: No acute osseous abnormality. IMPRESSION: 1. Improved inspiratory effort when compared to
[2025-06-10 22:57] LABS: Mean Corpuscular Hemoglobin 34.4 pg (28.0-32.0); Mean Corpuscular Volume 100.1 fL (80.0-100.0)
[2025-06-10] MEDS: SODIUM CHLORIDE 0.9% 1,000 ML IVB ONE (23:30)
[2025-06-10 23:38] LABS: Alanine Aminotransferase 31 U/L (7-40); Alkaline Phosphatase 90 U/L (46-116); Anion Gap 13 (5-15); BUN/Creatinine Ratio 10.7 (10.0-20.0); Bilirubin, Total 0.6 mg/dL (0.2-1.0); Blood Urea Nitrogen 19 mg/dL (9-23); Calcium 10.1 mg/dL (8.7-10.4); Carbon Dioxide 20 mmol/L (20-31); Chloride 103 mmol/L (98-107); Potassium 4.2 mmol/L (3.5-5.1); Sodium 136 mmol/L (136-145)
[2025-06-10] MEDS: ACETAMINOPHEN 325 MG TAB PO ONE (23:43)
[2025-06-10 23:47] LABS: Albumin 5.0 g/dL (3.2-4.8); Glucose 115 mg/dL (74-106); Total Protein 8.2 g/dL (5.7-8.2)
[2025-06-10 23:55] LABS: Lactic Acid w/Reflex 3.0 mmol/L (0.4-2.0)
[2025-06-11 00:37] LABS: COVID19 ANTIGEN SOFIA FIA POSITIVE (NEGATIVE)
[2025-06-11] MEDS ORDERED: DOXY-346 PO (01:56)
--- NOTE | 2025-06-11 02:40 | DVHINCON2 ---
[facility] 06/11/25 0240: Date of service: Jun 11, [address] Kc Reason for Consultation medical management History of Present Illness Mr. Sterling William is a 80-year-old male with a history of ORALIA, CKF, HTN, MS, obseity who presents with a chief complaint of generalized weakness. Patient states he has been unwell for the past 2 days, has been feeling generally weak with shortness a breath, fever and chills. He fell off his bed today, landing on his left side, with notable bruising on his left flank. Denies any head trauma or loss of consciousness. Upon arrival patient has a temperature has a 102.9 F. Patient was administered IV fluids , patient initial lactic level 3.0 post IV fluids 1.4. Patient denies any chest pain, headaches, dyspnea, diz ziness, lightheadedness, nausea, vomiting. When seen at bedside patient reported "I feel better". Past Medical History Chronic Kidney Failure, Hypertension, MS, Obesity. Past Surgical History none reported Family History: Patient reports no known family medical history. Family History none contributory Social History Smoker: Non-Smoker Alcohol: Denies ETOH Use Drugs: Denies Drug Use Lives In: Home Allergies: Coded Allergies: Doxycycline (Verified Allergy, Unknown, 06/11/25) All -cyclines Home Meds Active Scripts Doxycycline (Monohydrate) (Doxycycline) 100 Mg Tab, 100 MG PO BID for 7 Days, #14 TAB Prov:SHARON KC MD 06/11/25 Azithromycin (Zithromax Z-Jerald) 250 Mg Tab, 250 MG PO DAILY, #5 TAB Prov:FREDY MCKEON MD 09/01/24 Aspirin (Aspirin Ec) 81 Mg Tab, 81 MG PO DAILY, #30 TAB Prov:KARLI ANTHONY MD 06/20/23 Atorvastatin Calcium (ATORVASTATIN CALCIUM) 20 Mg Tab, 1 TAB PO DAILY, #90 TAB 1 Refill Prov:KARLI ANTHONY MD 06/20/23 Amlodipine Besylate (Amlodipine Besylate) 10 Mg Tab, 1 TAB PO DAILY, #90 TAB 1 Refill Prov:KARLI ANTHONY MD 06/17/23 Reported Medications Esomeprazole Magnesium (Esomeprazole Magnesium) 40 Mg Gra, 40 MG PO DAILY, GM 06/17/23 Alprazolam (Xanax) 1 Mg Tab, 1 TAB PO DAILY, #60 TAB 06/17/23 Citalopram Hydrobromide (Citalopram Hydrobromide) 40 Mg Tab, 1 TAB PO DAILY, #90 TAB 1 Refill 06/17/23 Review of Systems Constitutional: : denies: chills, diaphoresis, fatigue, malaise, sweats, others EENTM: denies: blurred vision, double vision, ear bleeding, ear discharge, ear drainage, ear pain, ear ringing, eye pain, eye redness, hearing loss, mouth pain, mouth swelling, nasal discharge, nose bleeding, nose congestion, nose pain, photophobia, tearing, throat pain, throat swelling, voice changes, others Respiratory: denies: cough, hemoptysis, orthopnea, SOB at rest, shortness of breath, SOB with excertion, stridor, wheezing, others Cardiovascular: denies: chest pain, dizzy spells, diaphoresis, Dyspnea on exertion, edema, irregular heart beat, left arm pain, lightheadedness, palpitations, PND, syncope, others Gastrointestinal: denies: abdomen distended, abdominal pain, blood streaked bowels, constipated, diarrhea, dysphagia, difficulty swallowing, hematemesis, melena, nausea, poor appetite, poor fluid intake, rectal bleeding, rectal pain, vomiting, others Genitourinary: denies: burning, dysuria, frequency, hematuria, incontinence, penile discharge, penile sore, pain, testicle pain, testicle swelling, urgency, others Neurological: denies: dizziness, fainting, headache, left sided numbness, left sided weakness, numbness, paresthesia, pre-existing deficit, right sided numbness, right sided weakness, seizure, speech problems, tingling, tremors, weakness, others Musculoskeletal: denies: back pain, gout, joint pain, joint swelling, muscle pain, muscle stiffness, neck pain, others Integumetry: denies: bruises, change in color, change in hair/nails, dryness, laceration, lesions, lumps, rash, wounds, others Allergic/Immunocompromised: denies: Difficulty Healing, Frequent Infections, Hives, Itching, others Hematologic/Lymphatic: denies: anemia, blood clots, easy bleeding, easy bruising, swollen glands, others Endocrine: denies: excessive hunger, excessive sweating, excessive thirst, excessive urination, flushing, intolerance to cold, intolerance to heat, unexplained weight gain, unexplained weight loss, others Psychiatric: denies: anxiety, bipolar disorder, depression, hopeless, panic disorder, schizophrenia, sleepless, suicidal, others Vital Signs Vital Signs Date Time Temp Pulse Resp B/P (MAP) Pulse Ox O2 Delivery O2 Flow Rate FiO2 06/11/25 02:00 98.9 85 26 157/86 (109) 98 98.9 06/10/25 22:10 Room Air* 0 21 Physical Exam HEENT pupils are reactive Neck is supple CV is S1-S2 regular rate and rhythm Respiratory diminished breath sounds bases GI positive bowel sound 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 Labs/Diagnostic Data Labs Test 06/11/25 00:37 06/10/25 23:35 06/10/25 22:40 Range/Units Lactic Acid Level 1.4 0.4-2.0 mmol/L Influenza Type A Antigen Negative Negative Influenza Type B Antigen Negative Negative SARS-CoV-2 Antigen (Rapid) Positive *A NEGATIVE White Blood Count 13.4 H 4.4-10.8 10^3/uL Red Blood Count 4.45 L 4.5-5.90 10^6/uL Hemoglobin 15.3 13.5-17.5 g/dL Hematocrit 44.6 41.0-53.0 % Mean Corpuscular Volume 100.1 H 80.0-100.0 fL Mean Corpuscular Hemoglobin 34.4 H 28.0-32.0 pg Mean Corpuscular Hemoglobin Concent 34.4 32.0-36.0 g/dL Red Cell Distribution Width 12.9 11.8-14.3 % Platelet Count 218 140-450 10^3/uL Mean Platelet Volume 8.9 6.9-10.8 fL Neutrophils (%) (Auto) 84.2 H 37.0-80.0 % Lymphocytes (%) (Auto) 6.9 L 10.0-50.0 % Monocytes (%) (Auto) 8.5 0.0-12.0 % Eosinophils (%) (Auto) 0.0 0.0-7.0 % Basophils (%) (Auto) 0.4 0.0-2.0 % Neutrophils # (Auto) 11.3 H 1.6-8.6 10 ^3/uL Lymphocytes # (Auto) 0.9 0.4-5.4 10 ^3/uL Monocytes # (Auto) 1.1 0-1.3 10 ^3/uL Eosinophils # (Auto) 0 0-0.8 10 ^3/uL Basophils # (Auto) 0 0-0.2 10 ^3/uL Nucleated Red Blood Cells 0.0 % Sodium Level 136 136-145 mmol/L Potassium Level 4.2 3.5-5.1 mmol/L Chloride Level 103 98-107 mmol/L Carbon Dioxide Level 20 20-31 mmol/L Anion Gap 13 5-15 Blood Urea Nitrogen 19 9-23 mg/dL Creatinine 1.78 H 0.700-1.30 mg/dL Glomerular Filtration Rate Calc 38 >90 mL/min BUN/Creatinine Ratio 10.7 10.0-20.0 Serum Glucose 115 H 74-106 mg/dL Calcium Level 10.1 8.7-10.4 mg/dL Total Bilirubin 0.6 0.2-1.0 mg/dL Aspartate Amino Transferase (AST) 45 H 13-40 U/L Alanine Aminotransferase (ALT) 31 7-40 U/L Alkaline Phosphatase 90 46-116 U/L Total Protein 8.2 5.7-8.2 g/dL Albumin 5.0 H 3.2-4.8 g/dL Assessment This is a 80 yo male who presented to the hospital with generalized weakness x 2 days status post fall from bed, denies any head trauma or LOC. Patient was found to be COVID -19 positive, chest x ray resulted: 1. Improved inspiratory effort when compared to . Patient on room air with 02 saturations 95-97%. Patient reports he is feeling better. Patient ambulated to restroom with no steady gait denied any dyspnea. Patient temperature 98.9 F post acetaminophen administration in the ED. No admission criteria at this time, recommendation for patient to follow up with PCP, oral hydration, acetaminophen as needed for febrile. Problems(with codes): (1) COVID-19 (2) Fall (3) Renal insufficiency Plan/Recommendation Patient was found to be COVID -19 positive, chest x ray resulted: 1. Improved inspiratory effort when compared to . Patient on room air with 02 sa turations 95-97%. Patient reports he is feeling better. Patient ambulated to restroom with steady gait denied any dyspnea, dizziness, lightheadedness. Patient temperature 98.9 F post acetaminophen administration in the ED. No admission criteria at this time, recommendation for patient to follow up with PCP outpatient in 5-7 days, oral hydration, acetaminophen as needed for febrile. Discussed all above with patient whom verbalized agreement and understanding of recommendation. Discussed with ED Physician Dr. Kc. Plan discussed with: Patient, Other KARLI ANTHONY MD 06/11/25 1252: Family History: Patient reports no known family medical history. Allergies: Coded Allergies: Doxycycline (Verified Allergy, Unknown, 06/11/25) All -cyclines Home Meds Active Scripts Doxycycline (Monohydrate) (Doxycycline) 100 Mg Tab, 100 MG PO BID for 7 Days, #14 TAB Prov:SHARON KC MD 06/11/25 Azithromycin (Zithromax Z-Jerald) 250 Mg Tab, 250 MG PO DAILY, #5 TAB Prov:FREDY MCKEON MD 09/01/24 Aspirin (Aspirin Ec) 81 Mg Tab, 81 MG PO DAILY, #30 TAB Prov:KARLI ANTHONY MD 06/20/23 Atorvastatin Calcium (ATORVASTATIN CALCIUM) 20 Mg Tab, 1 TAB PO DAILY, #90 TAB 1 Refill Prov:KARLI ANTHONY MD 06/20/23 Amlodipine Besylate (Amlodipine Besylate) 10 Mg Tab, 1 TAB PO DAILY, #90 TAB 1 Refill Prov:KARLI ANTHONY MD 06/17/23 Reported Medications Esomeprazole Magnesium (Esomeprazole Magnesium) 40 Mg Gra, 40 MG PO DAILY, GM 06/17/23 Alprazolam (Xanax) 1 Mg Tab, 1 TAB PO DAILY, #60 TAB 06/17/23 Citalopram Hydrobromide (Citalopram Hydrobromide) 40 Mg Tab, 1 TAB PO DAILY, #90 TAB 1 Refill 06/17/23 Additional Comments Additional Comments Additional Comments Patient's chart is reviewed. Patient is seen evaluated by nurse practitioner. I agree with the her evaluation, documentation, assessment and care plan as outlined. [facility] Jun 11, 2025 02:40 KARLI ANTHONY MD Jun 11, 2025 12:52
[2025-06-11] MEDS: PIPERACILLIN-TAZOB 3.375GM 100 ML IV ONE (02:48)
--- NOTE | 2025-06-11 03:52 | ECG ---
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
[2025-06-11 07:23] VITALS: PULSE 60; RESP 19; TEMP 98.1
[2025-06-11 09:00] VITALS: BP 156/66; PULSE 60; RESP 21; O2SAT 96
== END 2025-06-11 10:15 | disposition home or self-care (01) ==
LOC: EDBD 22:07 → ER 22:07
DX: M79.18 Myalgia, other site (principal); N17.9 Acute kidney failure, unspecified; U07.1 COVID-19; I11.0 Hypertensive heart disease with heart failure; I50.9 Heart failure, unspecified; E66.9 Obesity, unspecified; F41.9 Anxiety disorder, unspecified; I25.2 Old myocardial infarction; Z79.82 Long term (current) use of aspirin; Z79.899 Other long term (current) drug therapy; Z88.1 Allergy status to other antibiotic agents; W06.XXXA Fall from bed, initial encounter; Y93.89 Activity, other specified; Y92.003 Bedroom of unspecified non-institutional (private) residence as the place of occurrence of the external cause; Y99.8 Other external cause status
CPT/HCPCS: 36415; 71045; 80053; 83605; 85025; 87040; 87426; 87804; 93005; 96361; 96365; 99285; J2543; J7030